=== PATIENT | female | born 1950 | race Caucasian/White ===

== ENCOUNTER → 2017-01-01 | Outpatient (CLI) | payer MEDICARE ==
[~2017-01-01] MED LIST: ASCO1CHW17 PO; ASPI81TA28 PO; CHOL20005 PO; CYAN100T6 PO; ESTR1CRE PV; FLAX10007 PO; METO50TA16 PO; MULT-884 PO; OMEG5CAP PO; PRLSR20 PO
[2017-01-01 10:40] LABS: ALT/SGPT 28 U/L (12-78); BLOOD UREA NITROGEN 11 mg/dl (7-18); BUN/CREATININE RATIO 16.1 (10-20); CALCIUM 8.8 mg/dl (8.5-10.1); CARBON DIOXIDE 28 mmol/L (21-32); CHLORIDE 105 mmol/L (98-107); CHOLESTEROL 281 mg/dl (0-200); CREATININE 0.67 mg/dl (0.60-1.20); GLUCOSE 82 mg/dl (70-99); POTASSIUM 4.2 mmol/L (3.5-5.1); SODIUM 142 mmol/L (136-145)
[2017-01-01 10:43] LABS: ALB/GLOB RATIO 0.9 (0.9-2); ALKALINE PHOSPHATASE 95 U/L (45-117); AST/SGOT 21 U/L (15-37); CHOLESTEROL/HDL RATIO 4.8; HDL CHOLESTEROL 58 mg/dl; LDL CHOLESTEROL CALCULATED 181 mg/dl; TRIGLYCERIDES 209 mg/dl (0-150); VERY LOW DENSITY LIPOPROT CALC 42 mg/dl
== END | disposition home or self-care (01) ==
LOC: C.LAB 09:32
PROVIDERS: ATTEND Nurse Practitioner
DX: E78.5 Hyperlipidemia, unspecified (principal)

== ENCOUNTER → 2017-07-20 | Outpatient (CLI) | payer MEDICARE ==
[2017-07-20 13:14] LABS: ALT/SGPT 29 U/L (12-78); AST/SGOT 22 U/L (15-37); BLOOD UREA NITROGEN 14 mg/dl (7-18); BUN/CREATININE RATIO 19.3 (10-20); CALCIUM 9.3 mg/dl (8.5-10.1); CARBON DIOXIDE 29 mmol/L (21-32); CHLORIDE 106 mmol/L (98-107); CHOLESTEROL 267 mg/dl (0-200); GLUCOSE 79 mg/dl (70-99); POTASSIUM 3.9 mmol/L (3.5-5.1); SODIUM 140 mmol/L (136-145)
[2017-07-20 13:17] LABS: ALKALINE PHOSPHATASE 103 U/L (45-117); CHOLESTEROL/HDL RATIO 5.2; HDL CHOLESTEROL 51 mg/dl; LDL CHOLESTEROL CALCULATED 158 mg/dl; TRIGLYCERIDES 290 mg/dl (0-150); VERY LOW DENSITY LIPOPROT CALC 58 mg/dl
== END | disposition home or self-care (01) ==
LOC: C.LAB 09:13
PROVIDERS: ATTEND Nurse Practitioner
DX: Z11.59 Encounter for screening for other viral diseases (principal); E78.5 Hyperlipidemia, unspecified

== ENCOUNTER → 2017-08-16 | Outpatient (CLI) | payer MEDICARE ==
--- NOTE | 2017-08-16 12:36 | MAMMOGRAPHY REPORT ---
BILATERAL DIGITAL SCREENING MAMMOGRAM WITH CAD: 08/16/2017 CLINICAL HISTORY: Routine screening. Patient has no complaints. TECHNIQUE: Bilateral CC and MLO views were obtained. Current study was also evaluated with a Compute r Aided Detection (CAD) system. COMPARISON: Comparison is made to exams dated: 08/13/2016 mammogram, 08/12/2015 mammogram, 08/09/2014 [facility], 02/08/2013 mammogram, 05/27/2011 mammogram, and 05/19/2011 mammo [facility]. BREAST COMPOSITION: The tissue of both breasts is almost entirely fatty. FINDINGS: There are benign rim calcifications in both breasts. No suspicious mass, architectural di stortion or cluster of suspicious microcalcifications is seen. IMPRESSION: ACR BI-RADS CATEGORY 2: BENIGN There is no mammographic evidence of malignancy. A 1 year screening mammogram is recommended. The pa tient will receive written notification of the results. Approximately 10% of breast cancers are not detected with mammography. A negative mammographic report should not delay biopsy if a clinically suggestive mass is present. Elvia Robledo M.D. ay/:08/16/2017 12:12:53 Auto Body Detailer: Tess ANDERSON(Livia)(Hans)(BD), [facility] letter sent: Normal 1/2 BI-RADS Code: ACR BI-RADS Category 2: Benign
== END | disposition home or self-care (01) ==
LOC: C.MAMM 10:49
PROVIDERS: ATTEND Nurse Practitioner
DX: Z12.31 Encounter for screening mammogram for malignant neoplasm of breast (principal)

== ENCOUNTER → 2018-01-28 | Outpatient (CLI) | payer MEDICARE ==
[2018-01-28 12:38] LABS: BLOOD UREA NITROGEN 11 mg/dl (7-18); CARBON DIOXIDE 25 mmol/L (21-32); CREATININE 0.66 mg/dl (0.60-1.20); GLUCOSE 82 mg/dl (70-99); POTASSIUM 4.2 mmol/L (3.5-5.1); SODIUM 137 mmol/L (136-145)
[2018-01-28 12:49] LABS: CHOLESTEROL 274 mg/dl (0-200); LDL CHOLESTEROL CALCULATED 175 mg/dl
== END | disposition home or self-care (01) ==
LOC: C.LAB 10:24
PROVIDERS: ATTEND Nurse Practitioner
DX: E78.5 Hyperlipidemia, unspecified (principal); M85.80 Other specified disorders of bone density and structure, unspecified site; L67.9 Hair color and hair shaft abnormality, unspecified

== ENCOUNTER → 2018-02-15 | Outpatient (CLI) | payer MEDICARE | END | disposition home or self-care (01) | LOC: C.MAMM 08:47 | PROVIDERS: ATTEND Nurse Practitioner | DX: M85.859 Other specified disorders of bone density and structure, unspecified thigh (principal); N95.9 Unspecified menopausal and perimenopausal disorder ==

== ENCOUNTER 2018-06-20 05:41 | Day surgery (SDC) | payer MEDICARE ==
[2018-06-17 09:27] VITALS: Ht 152.4 cm; Wt 71.4 kg
[~2018-06-20] VITALS: Ht 152.4 cm; Wt 71.4 kg
[~2018-06-20 05:41] MED LIST changes: -ESTR1CRE PV; +ONDA4TAB46 PO; -PRLSR20 PO; +TAGAMET PO; +TRAM-10 PO
[2018-06-20] MEDS ORDERED: CEFAZOLIN 2000MG IV PUSH 15 ML IV SCH (06:00)
[2018-06-20] MEDS ORDERED: LACTATED RINGER'S 1000ML 1,000 ML IV SCH ×3 (06:00→09:23)
[2018-06-20 06:21] VITALS: BP 147/84; PULSE 62; TEMP 37.3; O2SAT 97
[2018-06-20] MEDS ORDERED: PROPOFOL IV EMULSION 10 MG/ML 20 ML VIAL ONE (08:00)
[2018-06-20] MEDS ORDERED: ONDANSETRON INJ 2 MG/ML 2 ML VIAL ONE (08:00)
[2018-06-20] MEDS ORDERED: LIDOCAINE HCL 2% 2 ML VIAL (20MG/ML) ONE (08:00)
[2018-06-20] MEDS ORDERED: FENTANYL CITRATE INJ 50 MCG/1 ML 2 ML VIAL ONE (08:00)
[2018-06-20] MEDS ORDERED: FLUMAZENIL 0.1 MG/1 ML 10 ML VIAL IV PRN (08:15)
[2018-06-20] MEDS ORDERED: FENTANYL CITRATE INJ 50 MCG/1 ML 2 ML VIAL IV PRN (08:15)
[2018-06-20] MEDS ORDERED: MEPERIDINE HCL 25 MG/ML CARP IV PRN (08:15)
[2018-06-20] MEDS ORDERED: ATROPINE SULFATE 0.1 MG/ML 5ML SYR IV PRN (08:15)
[2018-06-20] MEDS ORDERED: LABETALOL HCL IV 5 MG/ML 20ML IV PRN (08:15)
[2018-06-20] MEDS ORDERED: ONDANSETRON INJ 2 MG/ML 2 ML VIAL IV PRN ×2 (08:15→09:30)
[2018-06-20] MEDS ORDERED: NALOXONE HCL 0.4 MG/1 ML VIAL/CARP IV PRN (08:15)
[2018-06-20] MEDS ORDERED: EpHEDrine SULFATE INJ 50 MG/ML AMP IV PRN (08:15)
[2018-06-20] MEDS ORDERED: PHENYLEPHRINE 100MCG/ML 5ML SYR IV PRN (08:15)
--- NOTE | 2018-06-20 08:18 | History & Physical Bridge Note ---
H&P Re-Evaluation Bridge Note: I have examined the patient, reviewed the History & Physical and in the interval since the performance of the History & Physical I have noted the following changes of clinical significance: No changes noted
[2018-06-20] MEDS ORDERED: HEPARIN SOD (PORCINE) 1000 UNIT/ML 10 ML VIAL ONE (08:21)
[2018-06-20] MEDS ORDERED: CEFAZOLIN SOD 1 GM VIAL ONE (08:21)
[2018-06-20] MEDS ORDERED: LIDOCAINE HCL 1% 20 ML VIAL ONE (08:21)
--- NOTE | 2018-06-20 09:21 | Discharge Instructions ---
Discharge Instructions Date of Service Jun 20, 2018. Visit Reason for Visit: B-Cell Lymphoma Discharge Discharge Diagnosis / Problem: A-port Discharge Goals Goal(s): Therapeutic intervention Activity Recommendations Activity Limitations: as noted below Shower/Bathe: keep incision dry (for 2 days) Driving or Machine Use: resume 1 day after discharge Anesthesia . Post Anesthesia Instructions: If you have had General Anesthesia or IV Sedation: * Do not drive today. * Resume driving when surgeon permits. * Do not make important decisions or sign legal documents today. * Call surgeon for: 1. Temperature elevations greater than 101 degrees F. 2. Uncontrollable pain. 3. Excessive bleeding. 4. Persistent nausea and vomiting. 5. Medication intolerance (nausea, vomiting or rash). * For nausea and vomiting use only clear liquids such as: tea, soda, bouillon until nausea subsides, then gradually increase diet as tolerated. * If you have any concerns or questions, call your surgeon's office. If physician is unavailable and it is an emergency, call 911 or go to the nearest emergency room. . Instructions / Follow-Up Instructions / Follow-Up Dr. Cardenas's office in 2 weeks for suture removal It is OK for port to be used Diet Recommendations Recommended Home Diet: no limitations Procedures Procedures Performed: Insertion of A-Port Left Subclavian Pending Studies Studies pending at discharge: no Medical Emergencies . Who to Call and When: Medical Emergencies: If at any time you feel your situation is an emergency, please call 911 immediately. . Non-Emergent Contact Non-Emergency issues call your: Surgeon Call Non-Emergent contact if: you have a fever, temperature is above 101.5, your pain is not controlled, wound has increased redness, wound has increased pain . . "Provider Documentation" section prepared by Ramon Pierce. .
--- NOTE | 2018-06-20 09:24 | [facility] Operative Report ---
Operative Report Operative Date Jun 20, 2018. Pre-Operative Diagnosis Need for chemotherapy Post-Operative Diagnosis Same as preop Procedure(s) Performed Insertion of A-Port Left Subclavian Surgeon Dr Cardenas Lens Inserter Surgeon(s) None Estimated Blood Loss 5 ml Specimens None Anesthesia Type MAC Complication(s) none Disposition Recovery Room / PACU I attest to the content of the Intraoperative Record and any orders documented therein. Any exceptions are noted below.
[2018-06-20] MEDS ORDERED: ACETAMINOPHEN 325 MG TAB PO PRN (09:30)
[2018-06-20] MEDS ORDERED: TRAMADOL HCL 50 MG TAB PO PRN ×2 (09:30)
[2018-06-20] MEDS ORDERED: IBUPROFEN 600 MG TAB PO PRN (09:30)
[2018-06-20 09:32] VITALS: BP 125/71; PULSE 69; TEMP 36.6; O2SAT 96
--- NOTE | 2018-06-20 09:47 | Anesthesiology Progress Note ---
Anesthesia Post Op Note Date & Time Jun 20, 2018 at 09:47 Vital Signs Pain Intensity: 2 Vital Signs Past 12 Hours Date Time Temp Pulse Resp B/P (MAP) Pulse Ox O2 Delivery O2 Flow Rate FiO2 06/20/18 06:21 37.3 62 18 147/84 (105) 97 Room Air Notes Mental Status: alert / awake / arousable, participated in evaluation Pt Amnestic to Procedure: Yes Nausea / Vomiting: adequately controlled Pain: adequately controlled Airway Patency, RR, SpO2: stable & adequate BP & HR: stable & adequate Hydration State: stable & adequate Anesthetic Complications: no major complications apparent The patient is awake and her vitals are stable in recovery.
--- NOTE | 2018-06-20 09:49 | OPERATIVE REPORT ---
DATE OF OPERATION: 06/20/2018 NAME OF OPERATION: Port placement with fluoroscopy. PREOPERATIVE DIAGNOSIS: Lymphoma. POSTOPERATIVE DIAGNOSIS: Same. STAFF SURGEON: Bonifacio Cardenas MD ANESTHESIA: 1% plain lidocaine with sedation. DESCRIPTION OF PROCEDURE: Patient was brought in the operating room and placed on the operating table in supine position. Her chest was prepped and draped in the usual fashion. Skin and subcutaneous tissue over the left deltopectoral groove were anesthetized. Incision made carrying dissection down identifying a very small cephalic vein which I was unable to use. It was ligated and then placing the patient in Trendelenburg position, I was able to puncture the left subclavian vein and pass a wire under fluoroscopy. The needle was removed. A dilator introducer passed over the wire, the wire and dilator removed, and then the catheter passed through the introducer positioned in the superior vena cava under fluoroscopy and then the introducer removed. A pocket was fashioned in the subcutaneous tissue. The port was attached to the catheter, placed into the pocket. It was aspirated and flushed with heparinized solution. It was secured using 3-0 Prolene suture. The deep tissue was reapproximated using 2-0 chromic suture and the skin reapproximated using 4-0 nylon suture. Dressing applied and patient transferred to recovery room in stable condition. I attest to the content of the Intraoperative Record and any orders documented therein. Any exception s are noted below.
--- NOTE | 2018-06-20 09:51 | OPERATIVE REPORT ---
DATE OF OPERATION: 06/20/2018 NAME OF PROCEDURE: Fluoroscopy for port placement. DESCRIPTION OF PROCEDURE: Patient was in the operating room undergoing port placement. I was able to use fluoroscopy to place the catheter. The patient tolerated well. I attest to the content of the Intraoperative Record and any orders documented therein. Any exception s are noted below.
[2018-06-20 10:00] VITALS: BP 126/79; PULSE 65; TEMP 37.2; O2SAT 94
--- NOTE | 2018-06-20 10:37 | DIAGNOSTIC IMAGING REPORT ---
CHEST ONE VIEW PORTABLE HISTORY: port placement COMPARISON: Chest 05/23/2018. FINDINGS: The lungs are clear. The heart is top normal in size. No pleural effusions. No pneumothorax. Left subclavian Port-A-Cath terminates at the distal SVC. IMPRESSION: 1. Left subclavian Port-A-Cath terminates at the distal SVC. 2. No pneumothorax. Electronically signed by: Davidson De La Torre M.D. 06/20/2018 10:36 AM Dictated Date/Time: 06/20/2018 10:33 AM
== END 2018-06-20 10:45 | disposition home or self-care (01) ==
LOC: C.ACU 05:41
PROVIDERS: ATTEND Surgery
DX: C83.30 Diffuse large B-cell lymphoma, unspecified site (principal); I10 Essential (primary) hypertension; K21.9 Gastro-esophageal reflux disease without esophagitis; E78.5 Hyperlipidemia, unspecified; M19.90 Unspecified osteoarthritis, unspecified site; E66.01 Morbid (severe) obesity due to excess calories; Z68.30 Body mass index [BMI] 30.0-30.9, adult; Z88.5 Allergy status to narcotic agent; Z87.440 Personal history of urinary (tract) infections; Z87.442 Personal history of urinary calculi; Z79.82 Long term (current) use of aspirin

== ENCOUNTER → 2018-06-23 | Outpatient (CLI) | payer MEDICARE ==
[~2018-06-23] MED LIST changes: -ASPI81TA28 PO
--- NOTE | 2018-06-24 19:02 | ECHOCARDIOGRAM REPORT ---
*NOTICE TO RECEIVING LIBERTARIAN AGENCY This information is strictly Confidential and protected under [place] law. [place] law prohibits you from making any further disclosure of this information unless further disclosure is expressly permitted by the written consent of the person to whom it pertains or is authorized by law. A general authorization for the release of medical or other information is not sufficient for this purpose. Hospital accepts no responsibility if the information is made available to any other person, INCLUDING THE PATIENT. Interpretation Summary * Name: OLI ROGER Study Date: 06/23/2018 01:47 PM * Patient Location: [facility] HR: 78 * : 1950 (M/d/yyyy) Gender: Female Height: 60 in * Age: 68 yrs Ethnicity: [place] Weight: 155 lb * Ordering Physician: Kwaku Ramos * Referring Physician: Kwaku Ramos. * Performed By: Daya Julian RDCS * * Reason For Study: LYMPHOMA * BSA: 1.7 m2 * -- Conclusions -- * 1. Normal left ventricular size with hyperdynamic systolic function. EF > 70%. No regional wall motion abnormalities. Mild asymmetric hypertrophy of the basal anteroseptum. Type 1 diastolic dysfunction. * 2. No significant valvular abnormalities visualized. * 3. Normal estimated right ventricular systolic pressure. * 4. No prior study available for comparison. Procedure Details * A complete two-dimensional transthoracic echocardiogram was performed (2D, M-mode, Doppler and color flow Doppler). Left Ventricle * Normal left ventricular size with hyperdynamic systolic function. EF > 70%. No regional wall motion abnormalities. Asymmetric mild hypertrophy of the basal anteroseptum. Type 1 diastolic dysfunction. Right Ventricle * The right ventricle is normal in size and function. Atria * The left atrial size is normal. * Right atrial size is normal. * There is no evidence of atrial septal defect, but resolution does not allow assessment for a patent foramen ovale. Mitral Valve * The mitral valve is grossly normal. * There is no mitral valve stenosis. * There is trace mitral regurgitation. Tricuspid Valve * The tricuspid valve is not well visualized, but is grossly normal. * There is no tricuspid stenosis. * There is trace tricuspid regurgitation. Aortic Valve * The aortic valve is trileaflet. * No hemodynamically significant valvular aortic stenosis. * No aortic regurgitation is present. Pulmonic Valve * The pulmonary valve is inadequately visualized, but the Doppler data is adequate for interpretation. * There is no pulmonic valvular stenosis. * There is no significant pulmonary regurgitation. Great Vessels * The aortic root is normal size. * Aortic arch of normal dimension. Pericardium/Pleural * There is no pericardial effusion. Great Vessels * Normal inferior vena cava size and collapsability with sniff indicates a normal right atrial pressure of 3 mmHg MMode 2D Measurements and Calculations IVSd 1.3 cm IVSs 1.7 cm LVIDd 3.9 cm LVIDs 2.2 cm LVPWd 0.83 cm LVPWs 1.7 cm IVS/LVPW 1.6 FS 44.4 % EDV(Teich) 67.7 ml ESV(Teich) 16.1 ml EF(Teich) 76.3 % EDV(cubed) 61.4 ml ESV(cubed) 10.5 ml EF(cubed) 82.8 % % IVS thick 24.9 % % LVPW thick 103.0 % LV mass(C)d 138.5 grams LV mass(C)dI 82.7 grams/m\S\2 LV mass(C)s 132.9 grams LV mass(C)sI 79.3 grams/m\S\2 SV(Teich) 51.7 ml SI(Teich) 30.8 ml/m\S\2 SV(cubed) 50.8 ml SI(cubed) 30.4 ml/m\S\2 Ao root diam 2.9 cm Ao root area 6.6 cm\S\2 ACS 1.3 cm LA dimension 3.2 cm asc Aorta Diam 2.5 cm LA/Ao 1.1 LVOT diam 1.9 cm LVOT area 2.8 cm\S\2 LVAd ap4 23.0 cm\S\2 LVLd ap4 7.5 cm EDV(MOD-sp4) 57.1 ml EDV(sp4-el) 60.1 ml LVAs ap4 10.2 cm\S\2 LVLs ap4 5.6 cm ESV(MOD-sp4) 15.3 ml ESV(sp4-el) 15.7 ml EF(MOD-sp4) 73.1 % EF(sp4-el) 73.9 % LVAd ap2 25.9 cm\S\2 LVLd ap2 8.3 cm EDV(MOD-sp2) 66.5 ml EDV(sp2-el) 68.7 ml LVAs ap2 11.8 cm\S\2 LVLs ap2 6.6 cm ESV(MOD-sp2) 16.7 ml ESV(sp2-el) 17.8 ml EF(MOD-sp2) 74.9 % EF(sp2-el) 74.1 % LVLd %diff 9.4 % EDV(MOD-bp) 64.1 ml LVLs %diff 15.3 % ESV(MOD-bp) 16.8 ml EF(MOD-bp) 73.8 % SV(MOD-sp4) 41.8 ml SI(MOD-sp4) 24.9 ml/m\S\2 SV(MOD-sp2) 49.8 ml SI(MOD-sp2) 29.7 ml/m\S\2 SV(MOD-bp) 47.3 ml SI(MOD-bp) 28.2 ml/m\S\2 SV(sp4-el) 44.4 ml SI(sp4-el) 26.5 ml/m\S\2 SV(sp2-el) 50.9 ml SI(sp2-el) 30.4 ml/m\S\2 Doppler Measurements and Calculations MV E max nicholas 77.7 cm/sec MV A max nicholas 85.7 cm/sec MV E/A 0.91 MV dec time 0.22 sec Ao V2 max 128.6 cm/sec Ao max PG 6.6 mmHg Ao max PG (full) 2.8 mmHg ELIZABETH(V,A) 2.1 cm\S\2 ELIZABETH(V,D) 2.1 cm\S\2 LV V1 max PG 3.8 mmHg LV V1 max 97.0 cm/sec PA V2 max 96.5 cm/sec PA max PG 3.7 mmHg TR max nicholas 242.9 cm/sec RVSP(TR) 27.0 mmHg RAP systole 3.0 mmHg
== END | disposition home or self-care (01) ==
LOC: C.CPL 13:46
PROVIDERS: ATTEND Internal Medicine Hematology & Oncology
DX: C83.33 Diffuse large B-cell lymphoma, intra-abdominal lymph nodes (principal)

== ENCOUNTER 2023-06-14 20:26 | Observation (INO) ==
[2023-06-14 20:57] LABS: Basophils # (auto) 0.05 K/uL (0-0.2); Basophils % (auto) 0.5 %; Eosinophils # (auto) 0.12 K/uL (0-0.50); Eosinophils % (auto) 1.2 %; Hematocrit (blood only) 33.8 % (37.0-47.0); Hemoglobin 11.5 g/dl (12.0-16.0); Immature Granulocytes # (auto) 0.04 K/uL (0.01-0.20); Immature Granulocytes % (auto) 0.4 %; Lymphocytes # (auto) 1.46 K/uL (1.2-3.4); Lymphocytes % (auto) 14.9 %; Mean Corpuscular Volume 85.1 fL (80.0-100.0); Mean Platelet Volume 10.7 fL (9.4-12.4); Monocytes # (auto) 1.07 K/uL (0.11-0.59); Monocytes % (auto) 10.9 %; Neutrophils # (auto) 7.06 K/uL (1.40-6.50); Neutrophils % (auto) 72.1 %; Platelet Count 228 K/uL (130-400); RDW Coefficient of Variation 13.6 % (11.5-14.5); RDW Standard Deviation 42.7 fL (36.4-46.3); Red Blood Count 3.97 M/uL (4.20-5.40)
[2023-06-14 21:15] LABS: Alanine Aminotransferase 25 U/L (7-52); Albumin Globulin Ratio 1.6 (0.9-2); Albumin Level 4.2 gm/dl (3.4-5.0); Alkaline Phosphatase 79 U/L (34-104); Anion Gap 10 (3-11); Aspartate Aminotransferase 31 U/L (13-39); BUN Creatinine Ratio 12.5 (10-20); Bilirubin,Total 0.7 mg/dl (0.2-1.0); Blood Urea Nitrogen 8 mg/dl (6-23); Calcium 9.2 mg/dl (8.6-10.3); Carbon Dioxide 25 mmol/L (21-32); Chloride 104 mmol/L (98-107); Est GFR (African American) 102.6 ml/min; Est GFR (Non-African American) 88.5 ml/min; Globulin 2.7 gm/dl (2.5-4.0); Glucose 100 mg/dl (70-99(Fasting)); Lipase 11 U/L (11-82); Potassium 3.3 mmol/L (3.5-5.1); Sodium 139 mmol/L (136-145); Total Protein 6.9 gm/dl (6.0-8.3)
[2023-06-14] MEDS ORDERED: ACETAMINOPHEN 1,000 MG/100 ML VIAL IV STA (21:35)
[2023-06-14] MEDS ORDERED: ONDANSETRON INJ 2 MG/ML 2 ML VIAL IV STA (21:35)
[2023-06-14] MEDS ORDERED: SODIUM CHLORIDE 0.9% 1000ML 500 ML IV ONE (21:35)
[2023-06-14] MEDS ORDERED: PIPERACILLIN/TAZOBACTAM 4.5 GM/120 ML BAG IV ONE (21:38)
[2023-06-14] MEDS ORDERED: POTASSIUM CHLORIDE 10 MEQ TABCR PO STA (21:39)
[2023-06-14] MEDS ORDERED: HYDROmorphone INJ 0.5 MG/0.5 ML SYR IV STA ×2 (21:47→23:31)
[2023-06-14 21:58] LABS: Magnesium 1.9 mg/dl (1.7-2.4)
[2023-06-14 22:11] LABS: Appearance Urine Clear (Clear); Bilirubin Urine Negative (Negative); Blood Urine 3+ (Negative); Color Urine Dark Yellow; Glucose Urine UA Negative (Negative); Ketones Urine Negative (Negative); Leukocyte Esterase Urine 2+ (Negative); Nitrite Urine Positive (Negative); Protein Urine Trace (Negative); RBC Urine Automated >30 /hpf (0-4); Specific Gravity Urine 1.007 (1.000-1.030); Urobilinogen Urine Negative (Negative)
[2023-06-14 22:24] LABS: Bacteria Urine Automated 1+ (Negative)
[2023-06-14] MEDS ORDERED: OPTIRAY 320 100ml IV ONE (22:53)
--- NOTE | 2023-06-14 23:21 | CT Scan Report ---
Exam(s): CT ABDOMEN + PELVIS With Contrast IV Amt: 92ml OPTIRAY 320 EXAM: CT Abdomen and Pelvis With Intravenous Contrast CLINICAL HISTORY: Reason for exam: abd pain, bladder lift OR 3 days ago. TECHNIQUE: Axial computed tomography images of the abdomen and pelvis with intravenous contrast. CTDI is 19.11 mGy and DLP is 913.47 mGy-cm. Automated exposure control was utilized for the study. A dose lowering technique was utilized adhering to the principles of ALARA. CONTRAST: Patient received 92ml OPTIRAY 320 of IV contrast COMPARISON: CT abdomen and pelvis 08/06/20 FINDINGS: Lung bases are clear. There are a few benign liver cysts. Liver is otherwise unremarkable. Gallbladder, spleen, pancreas, and adrenal glands appear within normal limits. Kidneys are similar in size, contour, and enhancement. There is no hydronephrosis. There is atherosclerosis of the abdominal aorta without aneurysm. There is no adenopathy. There is no free air or significant free fluid. There is a fat-containing supraumbilical ventral hernia, stable from prior exam. Appendix is normal. There is no bowel obstruction or inflammatory change. There are sigmoid diverticula without diverticulitis. Uterus is surgically absent. There is a small focus of gas within the bladder lumen suggesting recent instrumentation. There is thickening of the posterior bladder wall which may be on the basis of postoperative change. Mild stranding surrounds the bladder. There are foci of subcutaneous gas in the perineum. There are no acute osseous findings. There is facet degeneration within the lumbar spine producing grade 1 anterolisthesis of L4. IMPRESSION: 1. Thickened appearance of the posterior bladder wall, possibly on the basis of postoperative change. A small volume of hemorrhagic fluid within the bladder lumen is not excluded. 2. Stranding around the urinary bladder may be on a postoperative basis or may reflect cystitis. Correlate with urinalysis. Small focus of gas and urinary bladder suggesting recent instrumentation. Electronically signed by: Lorna Adrian M.D. 06/14/23 23:20 PM
[2023-06-14] MEDS ORDERED: PHENAZOPYRIDINE HCL 200 MG TAB PO STA (23:30)
[2023-06-15] MEDS ORDERED: amLODIPine BESYLATE 5 MG TAB PO ONE (00:01)
[2023-06-15] MEDS ORDERED: NSS + 20MEQ KCL 20 MEQ/1,000 ML BAG IV ONE (00:03)
--- NOTE | 2023-06-15 01:22 | Emergency Department Note ---
History of Present Illness General Chief complaint: Abdominal Pain Stated complaint: ABDOMINAL PAIN Time Seen by Provider: 06/14/23 21:24 History of Present Illness Maximum Pain Intensity: 3 This 73-year-old female that had a bladder sling surgery done on Wednesday at [facility] presents to the ER complaining of abdominal pain, spasms and nausea today after they pulled out the Enciso. Patient denies chest pain, dyspnea, fevers, flank pain, diarrhea. Home Medications Medication Instructions Recorded Confirmed Type cyanocobalamin (vitamin B-12) 500 500 mcg PO QAM 07/14/19 06/14/23 History mcg tablet ascorbic acid (vitamin C) 250 mg 250 mg PO QAM 07/23/20 06/14/23 History tablet cholecalciferol (vitamin D3) 50 2,000 unit PO QPM 09/16/20 06/14/23 History mcg (2,000 unit) capsule Lactobacillus acidophilus 1.5 mg 1,000 mmu cells PO DAILY 11/27/21 06/14/23 History (250 million cell) capsule (Probiotic Acidophilus) calcium carbonate 500 mg calcium 500 mg PO DAILY 11/27/21 06/14/23 History (1,250 mg) tablet ibuprofen 200 mg tablet (Advil) 600 mg PO Q6H PRN Pain 01/06/22 06/14/23 History hydromorphone 2 mg tablet 2 mg PO UD 06/14/23 06/14/23 History ibuprofen 600 mg tablet 600 mg PO UD 06/14/23 06/14/23 History omega-3 fatty acids 1,000 mg 1,000 mg PO HS 06/14/23 06/14/23 History capsule pantoprazole 40 mg tablet,delayed 40 mg PO DAILYBB 06/14/23 06/14/23 History release Allergies Allergy/AdvReac Type Severity Reaction Status Date / Time lisinopril Allergy Intermediate fatigue Verified 07/27/22 11:23 solifenacin Allergy Intermediate visual Verified 07/27/22 11:23 disturbance cefuroxime [From Ceftin] Allergy Mild Nausea Verified 07/27/22 11:23 codeine Allergy Mild GI UPSET Verified 07/27/22 11:23 morphine Allergy Mild GI SYMPTOMS Verified 07/27/22 11:23 phenobarbital Allergy Unknown UNKNOWN Verified 07/27/22 11:23 REACTION [id number] Reductase AdvReac Intermediate AFFECTED Verified 07/27/22 11:23 Inhibitor LIVER, [[id number] Reductase fatigue, Inhibitor] nausea valsartan AdvReac Intermediate abdominal Verified 07/27/22 11:23 pain omeprazole AdvReac Mild nausea Verified 07/27/22 11:23 prednisone AdvReac Unknown UNKNOWN Verified 07/27/22 11:23 REACTION Past Med/Surg History Medical History Adnexal mass 2018 Barretts esophagus EGD- 2019- WNL - no [place] Bradycardia Chronic diarrhea Depression Diverticulosis Fatty liver Hepatic cyst Hiatal hernia History of anesthesia reaction in 1970 pt states she received "a shot to help her relax" prior to scheduled T&A sx and pt states she became "very flushed, face got brick red, got so anxious, my heart was racing and I felt like the montanez were closing in"--pt states she refused sx at that time ~Pt has had surgery since then and never had futher issues History of chemotherapy R-EPOCH- 6 cycles 2018 History of gastric ulcer History of Helicobacter pylori infection History of kidney stones 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 BSO Hx of radiation therapy 36 Gy-18 fractions-last tx 02/13/2019 Left lower quadrant abdominal pain intermittent PET scan in August with Oncology Nephrolithiasis 2011 (11/22/13 PCP note) Non-Hodgkin's lymphoma in adult Stage II Diffuse large B-Cell, non-hodgkin's lymphoma-05/25/2018 On statin therapy Osteopenia Dexa scan 2018 Pelvic prolapse Port-A-Cath in place left chest Spinal stenosis Stomach pain reason for EGD Tooth infection Transient global amnesia Urinary Incontinence Urinary incontinence Vitamin deficiency 04/2019-36.5 Surgical History H/O tubal ligation History of esophagogastroduodenoscopy (EGD) History of gynecologic surgery benign tumor removed in vagina History of total abdominal hysterectomy and bilateral salpingo-oophorectomy 11/2018 History of wisdom tooth extraction Hx of colonoscopy S/P breast biopsy open biopsy- fibroadenoma 1996 S/P myomectomy Family History Father Cardiac disorder Kidney stones Myocardial infarction Lung cancer Hypertension Mother Lung cancer Brother Diabetes Family history of malignant neoplasm of skin Stroke Sister Family history of reaction to anesthesia nausea/vomiting Daughter Family history of reaction to anesthesia nausea/vomiting Family hx colonic polyps Other Asthma Denies family history of Breast cancer Colorectal cancer Social History Smoking Status: Never smoker Second Hand Exposure: Yes (parents smoked); Do You Dip or Chew Tobacco: No; Hx Alcohol Use: No Hx Substance Use: No Preferred Language: Bengali Communication Ability: Effective Installation Technician Required: No Beliefs That Will Affect Care: None marital status: Current Living Situation: Spouse current occupational status: retired Feels Safe at Home: Yes caffeine: Yes Seatbelt Use: always Assistive Devices: Glasses Review of Systems A total of 10 systems reviewed and were otherwise negative Physical Exam Vital Signs Vital Signs - 24 hr 06/14/23 20:31 06/14/23 21:20 06/14/23 21:42 Temperature 36.4 C L Temperature Source Temporal Artery Scan Pulse Rate 71 70 Pulse Rate [Apical] 64 Pulse Rate from SpO2 Sensor Respiratory Rate 18 17 Respiratory Depth Normal Blood Pressure 181/77 H Blood Pressure Mean 111 Pulse Oximetry 96 95 Oxygen Delivery Method Room Air Sepsis Recent Fever Within 48 Hours No Sepsis New/Unexplained Change in Mental Status N/A Sepsis Action Taken by Nursing No Action Required 06/14/23 21:43 06/14/23 21:50 06/14/23 22:00 Temperature Temperature Source Pulse Rate 67 65 68 Pulse Rate [Apical] Pulse Rate from SpO2 Sensor 66 64 68 Respiratory Rate 23 17 20 Respiratory Depth Blood Pressure Blood Pressure Mean Pulse Oximetry 97 97 95 Oxygen Delivery Method Sepsis Recent Fever Within 48 Hours Sepsis New/Unexplained Change in Mental Status Sepsis Action Taken by Nursing 06/14/23 22:10 06/14/23 22:20 06/14/23 22:30 Temperature Temperature Source Pulse Rate 71 66 62 Pulse Rate [Apical] Pulse Rate from SpO2 Sensor 71 67 63 Respiratory Rate 12 19 12 Respiratory Depth Blood Pressure Blood Pressure Mean Pulse Oximetry 94 96 93 Oxygen Delivery Method Sepsis Recent Fever Within 48 Hours Sepsis New/Unexplained Change in Mental Status Sepsis Action Taken by Nursing 06/14/23 22:40 06/14/23 23:00 06/14/23 23:10 Temperature Temperature Source Pulse Rate 76 77 67 Pulse Rate [Apical] Pulse Rate from SpO2 Sensor 76 76 67 Respiratory Rate 18 17 15 Respiratory Depth Blood Pressure Blood Pressure Mean Pulse Oximetry 93 96 Oxygen Delivery Method Sepsis Recent Fever Within 48 Hours Sepsis New/Unexplained Change in Mental Status Sepsis Action Taken by Nursing 06/14/23 23:20 06/14/23 23:30 06/14/23 23:40 Temperature Temperature Source Pulse Rate 66 68 66 Pulse Rate [Apical] Pulse Rate from SpO2 Sensor 67 69 67 Respiratory Rate 20 15 22 Respiratory Depth Blood Pressure Blood Pressure Mean Pulse Oximetry 93 99 95 Oxygen Delivery Method Sepsis Recent Fever Within 48 Hours Sepsis New/Unexplained Change in Mental Status Sepsis Action Taken by Nursing 06/14/23 23:50 06/15/23 00:00 06/15/23 00:03 Temperature Temperature Source Pulse Rate 65 72 68 Pulse Rate [Apical] Pulse Rate from SpO2 Sensor 64 73 69 Respiratory Rate 12 20 15 Respiratory Depth Blood Pressure Blood Pressure Mean Pulse Oximetry 94 95 94 Oxygen Delivery Method Sepsis Recent Fever Within 48 Hours Sepsis New/Unexplained Change in Mental Status Sepsis Action Taken by Nursing 06/15/23 00:03 06/15/23 00:10 06/15/23 00:20 Temperature Temperature Source Pulse Rate 71 68 Pulse Rate [Apical] Pulse Rate from SpO2 Sensor 71 66 Respiratory Rate 16 15 Respiratory Depth Blood Pressure 126/76 Blood Pressure Mean 103 Pulse Oximetry 92 95 Oxygen Delivery Method Sepsis Recent Fever Within 48 Hours Sepsis New/Unexplained Change in Mental Status Sepsis Action Taken by Nursing 06/15/23 00:30 06/15/23 00:40 06/15/23 00:50 Temperature Temperature Source Pulse Rate 73 72 69 Pulse Rate [Apical] Pulse Rate from SpO2 Sensor 69 73 68 Respiratory Rate 12 26 H 16 Respiratory Depth Blood Pressure Blood Pressure Mean Pulse Oximetry 93 97 91 Oxygen Delivery Method Sepsis Recent Fever Within 48 Hours Sepsis New/Unexplained Change in Mental Status Sepsis Action Taken by Nursing 06/15/23 01:00 06/15/23 01:00 Temperature Temperature Source Pulse Rate 66 Pulse Rate [Apical] Pulse Rate from SpO2 Sensor 66 Respiratory Rate 17 Respiratory Depth Blood Pressure 109/53 L Blood Pressure Mean 84 Pulse Oximetry 96 Oxygen Delivery Method Sepsis Recent Fever Within 48 Hours Sepsis New/Unexplained Change in Mental Status Sepsis Action Taken by Nursing VITALS: Vitals are noted on the nurse's note and reviewed by myself. Vital signs stable. GENERAL: Pleasant female, in no acute distress, nondiaphoretic, well-developed well-nourished. SKIN: The skin was without rashes, erythema, edema, or bruising. There is no t enting of the skin. Capillary reflex less than 2 seconds. HEAD: Normocephalic atraumatic. EARS: External auditory canals clear, EYES: Pupils equal round and reactive to light and accommodation. Conjunctivae without injection, sclerae without icterus. Extraocular movements intact. NOSE: Patent, turbinates without inflammation or discharge. MOUTH: Mucous membranes moist. Pharynx without erythema or exudate. Uvula midline. Airway patent. Tongue does not deviate. NECK: Supple without nuchal rigidity. No lymphadenopathy. No thyromegaly. Cervical spine is nontender. No JVD. HEART: Regular rate and rhythm LUNGS: Clear to auscultation bilaterally without wheezes, rales or rhonchi. No retractions or accessory muscle use. ABDOMEN: Positive bowel sounds x 4. Normal tympanic percussion. Soft, tender lower abdomen, without masses or organomegaly. Lopez sign negative. No g uarding or rebound tenderness. No CVA tenderness MUSCULOSKELETAL: No muscle atrophy, erythema, or edema noted. NEURO: Patient was alert and oriented to person place and time. Normal sensation to light and sharp touch. No focal neurological deficits. Course Administered Medications Potassium Chloride/Sodium Chloride (Normal Saline W/20 Meq Kcl) 20 meq in 1,000 mls @ 50 mls/hr IV .Q20H ONE; Protocol Stop: 06/15/23 20:02 Last Admin: 06/15/23 01:01 Dose: 50 mls/hr Documented By: FRANCO Discontinued Medications Amlodipine Besylate (Amlodipine Besylate 5 Mg Tab) 2.5 mg PO NOW ONE Stop: 06/15/23 00:02 Last Admin: 06/15/23 01:01 Dose: 2.5 mg Documented By: FRANCO Hydromorphone HCl (Hydromorphone Inj 0.5 Mg/0.5 Ml Syr) 0.25 mg IV NOW STA Stop: 06/14/23 21:48 Last Admin: 06/14/23 22:02 Dose: 0.25 mg Documented By: JOSE Hydromorphone HCl (Hydromorphone Inj 0.5 Mg/0.5 Ml Syr) 0.5 mg IV NOW STA Stop: 06/14/23 23:32 Last Admin: 06/14/23 23:57 Dose: 0.5 mg Documented By: FRANCO Acetaminophen (Ofirmev) 1,000 mg in 100 mls @ 400 mls/hr IV NOW STA Stop: 06/14/23 21:49 Last Infusion: 06/14/23 22:50 Dose: 0 mls/hr Documented By: Admin: 06/14/23 21:49 Dose: 400 mls/hr Documented By: ACC Sodium Chloride (Nss 1000ml) 500 mls @ 999 mls/hr IV .Q31M ONE Stop: 06/14/23 22:05 Last Infusion: 06/14/23 22:43 Dose: 0 mls/hr Documented By: Admin: 06/14/23 22:03 Dose: 999 mls/hr Documented By: ACC Piperacillin Sod/Tazobactam Sod (Zosyn) 4.5 gm in 120 mls @ 240 mls/hr IV NOW ONE Stop: 06/14/23 22:07 Last Infusion: 06/14/23 22:42 Dose: 0 mls/hr Documented By: Admin: 06/14/23 21:49 Dose: 240 mls/hr Documented By: ACC Ioversol (Optiray 320 100ml) 92 ml IV ONCE ONE Stop: 06/14/23 22:54 Last Admin: 06/14/23 22:53 Dose: 92 ml Documented By: BRITTANY Ondansetron HCl (Ondansetron Inj 2 Mg/Ml 2 Ml Vial) 4 mg IV NOW STA Stop: 06/14/23 21:36 Last Admin: 06/14/23 21:49 Dose: 4 mg Documented By: ACC Phenazopyridine HCl (Phenazopyridine Hcl 200 Mg Tab) 200 mg PO NOW STA Stop: 06/14/23 23:31 Last Admin: 06/14/23 23:57 Dose: 200 mg Documented By: FRANCO Potassium Chloride (Potassium Chloride 10 Meq Tabcr) 40 meq PO NOW STA Stop: 06/14/23 21:40 Last Admin: 06/14/23 21:50 Dose: 40 meq Documented By: ACC Medical Decision Making Medical Records Attestation: I reviewed the patient's medical records. Home Medications Current Medication List: was personally reviewed by me Laboratory Data Attestation: I reviewed the patient's lab results. 06/14/23 20:40 06/14/23 20:40 Lab Results 06/14/23 06/14/23 06/14/23 Range/Units 20:40 20:40 21:55 WBC 9.80 (4.8-10.8) K/ul RBC 3.97 L (4.20-5.40) M/uL Hgb 11.5 L (12.0-16.0) g/dl Hct 33.8 L (37.0-47.0) % MCV 85.1 (80.0-100.0) fL MCH 29.0 (25.0-34.0) pg MCHC 34.0 (32.0-36.0) g/dL RDW Std Deviation 42.7 (36.4-46.3) fL RDW Coeff of Owen 13.6 (11.5-14.5) % Plt Count 228 (130-400) K/uL MPV 10.7 (9.4-12.4) fL Immature Gran % (Auto) 0.4 % Neut % (Auto) 72.1 % Lymph % (Auto) 14.9 % [place] % (Auto) 10.9 % Eos % (Auto) 1.2 % Baso % (Auto) 0.5 % Neut # (Auto) 7.06 H (1.40-6.50) K/uL Lymph # (Auto) 1.46 (1.2-3.4) K/uL [place] # (Auto) 1.07 H (0.11-0.59) K/uL Eos # (Auto) 0.12 (0-0.50) K/uL Baso # (Auto) 0.05 (0-0.2) K/uL Immature Gran # (Auto) 0.04 (0.01-0.20) K/uL Sodium 139 (136-145) mmol/L Potassium 3.3 L (3.5-5.1) mmol/L Chloride 104 (98-107) mmol/L Carbon Dioxide 25 (21-32) mmol/L Anion Gap 10 (3-11) BUN 8 (6-23) mg/dl Creatinine 0.64 (0.6-1.2) mg/dl Est Cr Clr Drug Dosing Not Reportable Est GFR ( Amer) 102.6 ml/min Est GFR (Non-Af Amer) 88.5 ml/min BUN/Creatinine Ratio 12.5 (10-20) Glucose 100 H (70-99(Fasting)) mg/dl Calcium 9.2 (8.6-10.3) mg/dl Magnesium 1.9 (1.7-2.4) mg/dl Total Bilirubin 0.7 (0.2-1.0) mg/dl AST 31 (13-39) U/L ALT 25 (7-52) U/L Alkaline Phosphatase 79 (34-104) U/L Total Protein 6.9 (6.0-8.3) gm/dl Albumin 4.2 (3.4-5.0) gm/dl Globulin 2.7 (2.5-4.0) gm/dl Albumin/Globulin Ratio 1.6 (0.9-2) Lipase 11 (11-82) U/L Urine Color Cancelled Urine Appearance Cancelled Urine pH Cancelled Ur Specific [place] Cancelled Urine Protein Cancelled Urine Glucose (UA) Cancelled Urine Ketones Cancelled Urine Blood Cancelled Urine Nitrite Cancelled Urine Bilirubin Cancelled Urine Urobilinogen Cancelled Ur Leukocyte Esterase Cancelled Urine WBC (Auto) Cancelled Urine RBC (Auto) Cancelled U Hyaline Cast (Auto) Cancelled U Epithel Cells (Auto) Cancelled Urine Bacteria (Auto) Cancelled Ur Renal Epithelial Cell Cancelled Urine Crystals Cancelled Calcium Oxalate Crystal Cancelled Uric Acid Crystals Cancelled Triple Phos Crystals Cancelled Other Crystals Cancelled Amorphous Sediment Cancelled Granular Casts Cancelled Waxy Casts Cancelled RBC Casts Cancelled WBC Casts Cancelled Other Casts Cancelled Urine Mucus Cancelled Urine Other Cancelled Urine Trichomonas Cancelled Urine Yeast Cancelled Urine Sperm Cancelled Ur Oval Fat Bodies Cancelled 06/14/23 Range/Units 21:56 WBC (4.8-10.8) K/ul RBC (4.20-5.40) M/uL Hgb (12.0-16.0) g/dl Hct (37.0-47.0) % MCV (80.0-100.0) fL MCH (25.0-34.0) pg MCHC (32.0-36.0) g/dL RDW Std Deviation (36.4-46.3) fL RDW Coeff of Owen (11.5-14.5) % Plt Count (130-400) K/uL MPV (9.4-12.4) fL Immature Gran % (Auto) % Neut % (Auto) % Lymph % (Auto) % [place] % (Auto) % Eos % (Auto) % Baso % (Auto) % Neut # (Auto) (1.40-6.50) K/uL Lymph # (Auto) (1.2-3.4) K/uL [place] # (Auto) (0.11-0.59) K/uL Eos # (Auto) (0-0.50) K/uL Baso # (Auto) (0-0.2) K/uL Immature Gran # (Auto) (0.01-0.20) K/uL Sodium (136-145) mmol/L Potassium (3.5-5.1) mmol/L Chloride (98-107) mmol/L Carbon Dioxide (21-32) mmol/L Anion Gap (3-11) BUN (6-23) mg/dl Creatinine (0.6-1.2) mg/dl Est Cr Clr Drug Dosing Est GFR ( Amer) ml/min Est GFR (Non-Af Amer) ml/min BUN/Creatinine Ratio (10-20) Glucose (70-99(Fasting)) mg/dl Calcium (8.6-10.3) mg/dl Magnesium (1.7-2.4) mg/dl Total Bilirubin (0.2-1.0) mg/dl AST (13-39) U/L ALT (7-52) U/L Alkaline Phosphatase (34-104) U/L Total Protein (6.0-8.3) gm/dl Albumin (3.4-5.0) gm/dl Globulin (2.5-4.0) gm/dl Albumin/Globulin Ratio (0.9-2) Lipase (11-82) U/L Urine Color Dark Yellow Urine Appearance Clear Urine pH 7.0 Ur Specific [place] 1.007 Urine Protein Trace H Urine Glucose (UA) Negative Urine Ketones Negative Urine Blood 3+ H Urine Nitrite Positive A Urine Bilirubin Negative Urine Urobilinogen Negative Ur Leukocyte Esterase 2+ H Urine WBC (Auto) 10-30 H Urine RBC (Auto) >30 H U Hyaline Cast (Auto) 1-5 U Epithel Cells (Auto) 10-20 H Urine Bacteria (Auto) 1+ H Ur Renal Epithelial Cell Urine Crystals Calcium Oxalate Crystal Uric Acid Crystals Triple Phos Crystals Other Crystals Amorphous Sediment Granular Casts Waxy Casts RBC Casts WBC Casts Other Casts Urine Mucus Urine Other Urine Trichomonas Urine Yeast Not Reportable Urine Sperm Ur Oval Fat Bodies Imaging Data Attestation: I personally reviewed and interpreted this imaging study as follows: Radiologist's Impression: Abdomen/Pelvis CT 06/14/23 21:35 Exam(s): CT ABDOMEN + PELVIS With Contrast IV Amt: 92ml OPTIRAY 320 EXAM: CT Abdomen and Pelvis With Intravenous Contrast CLINICAL HISTORY: Reason for exam: abd pain, bladder lift OR 3 days ago. TECHNIQUE: Axial computed tomography images of the abdomen and pelvis with intravenous contrast. CTDI is 19.11 mGy and DLP is 913.47 mGy-cm. Automated exposure control was utilized for the study. A dose lowering technique was utilized adhering to the principles of ALARA. CONTRAST: Patient received 92ml OPTIRAY 320 of IV contrast COMPARISON: CT abdomen and pelvis 08/06/20 FINDINGS: Lung bases are clear. There are a few benign liver cysts. Liver is otherwise unremarkable. Gallbladder, spleen, pancreas, and adrenal glands appear within normal limits. Kidneys are similar in size, contour, and enhancement. There is no hydronephrosis. There is atherosclerosis of the abdominal aorta without aneurysm. There is no adenopathy. There is no free air or significant free fluid. There is a fat-containing supraumbilical ventral hernia, stable from prior exam. Appendix is normal. There is no bowel obstruction or inflammatory change. There are sigmoid diverticula without diverticulitis. Uterus is surgically absent. There is a small focus of gas within the bladder lumen suggesting recent instrumentation. There is thickening of the posterior bladder wall which may be on the basis of postoperative change. Mild stranding surrounds the bladder. There are foci of subcutaneous gas in the perineum. There are no acute osseous findings. There is facet degeneration within the lumbar spine producing grade 1 anterolisthesis of L4. IMPRESSION: 1. Thickened appearance of the posterior bladder wall, possibly on the basis of postoperative change. A small volume of hemorrhagic fluid within the bladder lumen is not excluded. 2. Stranding around the urinary bladder may be on a postoperative basis or may reflect cystitis. Correlate with urinalysis. Small focus of gas and urinary bladder suggesting recent instrumentation. Electronically signed by: Lorna Adrian M.D. 06/14/23 23:20 PM MDM Narrative Prior records/ancillary studies reviewed. Triage Nursing notes reviewed. Additional history obtained from family. The patient's history was concerning for abdominal pain. Differential diagnosis: Etiologies such as postsurgical complication, appendicitis, diverticulitis, PUD, biliary pathology, UTI, pancreatitis, obstruction, mesenteric ischemia, aortic pathology, infections, inflammatory bowel disease, renal colic, as well as others were entertained. Physical examination findings: As above. ER treatment provided: An order was placed for continuous cardiac monitoring. The monitor shows a rate of 60-100 with a sinus rhythm per my Independent interpretation. IV fluids, Zosyn for presumed UTI, Pyridium, Tylenol, pain meds On reassessment the patient felt better. Diagnostics interpreted by me: The labs Independently Interpreted by myself revealed urine concerning for infection sent for culture. Mild anemia, no worrisome leukocytosis Imaging studies: CT of the abdomen pelvis concerning for cystitis per my independent interpretation and radiology report as above was reviewed. Consultation: A consultation was placed with the hospitalist. The case was discussed and diagnostics were reviewed. The patient was evaluated in the ER for further treatment. Exam and history seem consistent with postsurgical pain with cystitis who is feeling nauseous. Patient does not feel comfortable going home. She is quite nauseated and does not think she can take her antibiotics. She was given IV antibiotics here. Medicine is consulted and the case discussed. She will be admitted to the medical service for further evaluation and treatment. Patient and family are agreeable.By the evaluation outlined above emergent etiologies such as appendicitis, diverticulitis, PUD, biliary pathology, pancreatitis, obstruction, mesenteric ischemia, aortic pathology, inflammatory bowel disease, renal colic, as well as others were deemed relatively unlikely. The pt informed about the findings as listed above. All questions were answered and pleased with the treatment. The chart was completed utilizing [employer] Speech voice recognition software. Grammatical errors, random word insertions, pronoun errors, and incomplete sentences are an occassional consequence of this system due to software limitations, ambient noise, and hardware issues. Any formal questions or concerns about the content, text, or information contained within the body of this dictation should be directly addressed to the physician assistant production editor for clarification. Impression & Plan Acute UTI, Abdominal pain, acute, Nausea Discharge Plan Visit Data Chief Complaint: Abdominal Pain Stated Complaint: ABDOMINAL PAIN ED Provider: Juan Carlos Caal ED Midlevel Provider: Joselin Clayton Discharge Problem: Acute UTI, Abdominal pain, acute, Nausea Patient Disposition: Admitted As Inpatient Condition: Fair Forms Stand Alone Forms: My [facility] Prescriptions Prescriptions: No Action ibuprofen [Advil] 200 mg tablet 600 mg PO Q6H PRN (Reason: Pain) cyanocobalamin (vitamin B-12) 500 mcg tablet 500 mcg PO QAM calcium carbonate 500 mg calcium (1,250 mg) tablet 500 mg PO DAILY cholecalciferol (vitamin D3) 50 mcg (2,000 unit) capsule 2,000 unit PO QPM ascorbic acid (vitamin C) 250 mg tablet 250 mg PO QAM Probiotic Acidophilus 1.5 mg (250 million cell) capsule 1,000 mmu cells PO DAILY Rx Instructions: administer with a meal once per day hydromorphone 2 mg tablet 2 mg PO UD ibuprofen 600 mg tablet 600 mg PO UD pantoprazole 40 mg tablet,delayed release (DR/EC) 40 mg PO DAILYBB omega-3 fatty acids 1,000 mg Capsule 1,000 mg PO HS Referrals Referrals: Deisi Romero DO [Primary Care Provider] -
--- NOTE | 2023-06-15 01:47 | History & Physical Report ---
Date of Service June 15, 2023 Assessment & Plan (1) Complicated UTI (urinary tract infection): Plan: Recent urogynecologic procedure No sepsis for now Anemia secondary to hematuria Hypertensive urgency secondary to illness Patient not currently on maintenance medications. 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 SCDs Re: Hematuria causing anemia Full code Text document was generated using [employer] voice recognition software. It may contain grammatical or spelling errors. Kindly contact undersigned for clarification of any documentation item in question. History of Present Illness Chief Complaint: Abdominal pain, hematuria Primary Care Provider: Deisi Romero DO History obtained from patient and records. Medical history significant for hypertension, hyperlipidemia, past history of PVCs, NAFLD, Bateman's esophagus, ovarian cancer status post chemoradiation, non-Hodgkin's lymphoma status post chemoradiation, chronic back pain. Last confinement 2015 for transient global amnesia. Three days ago, patient underwent outpatient colpocleisis, colporrhaphy, mid urethral sling, cystoscopy procedure for complete vaginal vault prolapse, cystocele, rectocele, stress incontinence at [facility] same-day surgery. Tolerable postop perineal discomfort. Hematuria as expected by patient postprocedure. Patient Enciso catheter removed after seen [facility] urogynecologist yesterday. Worsening lower abdominal discomfort and hematuria that at home. Denies urinary retention. Some nausea, no emesis. No headache, no chest pain, no SOB. Patient brought to the ER for evaluation. SBP 180s upon arrival at the ER IV Zosyn administered at the ER for UTI. 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 Allergies Allergy/AdvReac Type Severity Reaction Status Date / Time lisinopril Allergy Intermediate fatigue Verified 07/27/22 11:23 solifenacin Allergy Intermediate visual Verified 07/27/22 11:23 disturbance cefuroxime [From Ceftin] Allergy Mild Nausea Verified 07/27/22 11:23 codeine Allergy Mild GI UPSET Verified 07/27/22 11:23 morphine Allergy Mild GI SYMPTOMS Verified 07/27/22 11:23 phenobarbital Allergy Unknown UNKNOWN Verified 07/27/22 11:23 REACTION Aujnlyx-VCG-MqL Reductase AdvReac Intermediate AFFECTED Verified 07/27/22 11:23 Inhibitor LIVER, [Iklasmp-Srf-Qgu Reductase fatigue, Inhibitor] nausea valsartan AdvReac Intermediate abdominal Verified 07/27/22 11:23 pain omeprazole AdvReac Mild nausea Verified 07/27/22 11:23 prednisone AdvReac Unknown UNKNOWN Verified 07/27/22 11:23 REACTION Home Medications Medication Instructions Recorded Confirmed Type cyanocobalamin (vitamin B-12) 500 500 mcg PO QAM 07/14/19 06/14/23 History mcg tablet ascorbic acid (vitamin C) 250 mg 250 mg PO QAM 07/23/20 06/14/23 History tablet cholecalciferol (vitamin D3) 50 2,000 unit PO QPM 09/16/20 06/14/23 History mcg (2,000 unit) capsule Lactobacillus acidophilus 1.5 mg 1,000 mmu cells PO DAILY 11/27/21 06/14/23 History (250 million cell) capsule (Probiotic Acidophilus) calcium carbonate 500 mg calcium 500 mg PO DAILY 11/27/21 06/14/23 History (1,250 mg) tablet ibuprofen 200 mg tablet (Advil) 600 mg PO Q6H PRN Pain 01/06/22 06/14/23 History hydromorphone 2 mg tablet 2 mg PO UD 06/14/23 06/14/23 History ibuprofen 600 mg tablet 600 mg PO UD 06/14/23 06/14/23 History omega-3 fatty acids 1,000 mg 1,000 mg PO HS 06/14/23 06/14/23 History capsule pantoprazole 40 mg tablet,delayed 40 mg PO DAILYBB 06/14/23 06/14/23 History release Past Med/Surg History Medical History Adnexal mass 2018 Barretts esophagus EGD- 2020- WNL - no Bateman Bradycardia Chronic diarrhea Depression Diverticulosis Fatty liver Hepatic cyst Hiatal hernia History of anesthesia reaction in 1970 pt states she received "a shot to help her relax" prior to scheduled T&A sx and pt states she became "very flushed, face got brick red, got so anxious, my heart was racing and I felt like the montanez were closing in"--pt states she refused sx at that time ~Pt has had surgery since then and never had futher issues History of chemotherapy R-EPOCH- 6 cycles 2018 History of gastric ulcer History of Helicobacter pylori infection History of kidney stones 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 BSO Hx of radiation therapy 36 Gy-18 fractions-last tx 02/13/2019 Left lower quadrant abdominal pain intermittent PET scan in August with Oncology Nephrolithiasis 2011 (11/22/13 PCP note) Non-Hodgkin's lymphoma in adult Stage II Diffuse large B-Cell, non-hodgkin's lymphoma-05/25/2018 On statin therapy Osteopenia Dexa scan 2017 Pelvic prolapse Port-A-Cath in place left chest Spinal stenosis Stomach pain reason for EGD Tooth infection Transient global amnesia Urinary Incontinence Urinary incontinence Vitamin deficiency 04/2019-36.5 Surgical History H/O tubal ligation History of esophagogastroduodenoscopy (EGD) History of gynecologic surgery benign tumor removed in vagina History of total abdominal hysterectomy and bilateral salpingo-oophorectomy 11/2018 History of wisdom tooth extraction Hx of colonoscopy S/P breast biopsy open biopsy- fibroadenoma 1996 S/P myomectomy Family History Father Cardiac disorder Kidney stones Myocardial infarction Lung cancer Hypertension Mother Lung cancer Brother Diabetes Family history of malignant neoplasm of skin Stroke Sister Family history of reaction to anesthesia nausea/vomiting Daughter Family history of reaction to anesthesia nausea/vomiting Family hx colonic polyps Other Asthma Denies family history of Breast cancer Colorectal cancer Social History Smoking Status: Never smoker Second Hand Exposure: Yes (parents smoked); Do You Dip or Chew Tobacco: No; Hx Alcohol Use: No Hx Substance Use: No Preferred Language: Japanese Communication Ability: Effective Preschool Assistant Required: No Beliefs That Will Affect Care: None marital status: Current Living Situation: Spouse current occupational status: retired Feels Safe at Home: Yes caffeine: Yes Seatbelt Use: always Assistive Devices: None Review of Systems Review of Systems: As per HPI, all other systems reviewed and negative Physical Exam Physical Exam: GENERAL: Comfortable, pleasant, no respiratory distress SKIN: Pallor, warm HEENT: Pale palpebral conjunctivae, no ptosis, dry buccal mucosa NECK : Supple, no tenderness CHEST : CTA, no tenderness HEART : RRR, no obvious murmurs ABDOMEN: Some distention, hypogastric tenderness EXTREMITIES : No LE swelling/tenderness, no other conspicuous deformities noted NEUROLOGIC : Coherent, no facial asymmetry, no other gross focality Results & Data Results & Data Vital Signs (Past 12 Hours) Vital Signs Temp Pulse Pulse Resp BP Pulse Ox O2 Del Method 06/15/23 01:30 66 18 95 06/15/23 01:20 77 19 95 06/15/23 01:10 67 14 97 06/15/23 01:00 66 17 96 06/15/23 01:00 109/53 L 06/15/23 00:50 69 16 91 06/15/23 00:40 72 26 H 97 06/15/23 00:30 73 12 93 06/15/23 00:20 68 15 95 06/15/23 00:10 71 16 92 06/15/23 00:03 126/76 06/15/23 00:03 68 15 94 06/15/23 00:00 72 20 95 06/14/23 23:50 65 12 94 06/14/23 23:40 66 22 95 06/14/23 23:30 68 15 99 06/14/23 23:20 66 20 93 06/14/23 23:10 67 15 96 06/14/23 23:00 77 17 93 06/14/23 22:40 76 18 06/14/23 22:30 62 12 93 06/14/23 22:20 66 19 96 06/14/23 22:10 71 12 94 06/14/23 22:00 68 20 95 06/14/23 21:50 65 17 97 06/14/23 21:43 67 23 97 06/14/23 21:42 70 06/14/23 21:20 64 17 95 06/14/23 20:31 36.4 C L 71 18 181/77 H 96 Room Air Laboratory Results Laboratory Results WBC 9.80 K/ul (4.8-10.8) 06/14/23 20:40 RBC 3.97 M/uL (4.20-5.40) L 06/14/23 20:40 Hgb 11.5 g/dl (12.0-16.0) L 06/14/23 20:40 Hct 33.8 % (37.0-47.0) L 06/14/23 20:40 MCV 85.1 fL (80.0-100.0) 06/14/23 20:40 MCH 29.0 pg (25.0-34.0) 06/14/23 20:40 MCHC 34.0 g/dL (32.0-36.0) 06/14/23 20:40 RDW Std Deviation 42.7 fL (36.4-46.3) 06/14/23 20:40 RDW Coeff of [place] 13.6 % (11.5-14.5) 06/14/23 20:40 Plt Count 228 K/uL (130-400) 06/14/23 20:40 MPV 10.7 fL (9.4-12.4) 06/14/23 20:40 Immature Gran % (Auto) 0.4 % 06/14/23 20:40 Neut % (Auto) 72.1 % 06/14/23 20:40 Lymph % (Auto) 14.9 % 06/14/23 20:40 [place] % (Auto) 10.9 % 06/14/23 20:40 Eos % (Auto) 1.2 % 06/14/23 20:40 Baso % (Auto) 0.5 % 06/14/23 20:40 Neut # (Auto) 7.06 K/uL (1.40-6.50) H 06/14/23 20:40 Lymph # (Auto) 1.46 K/uL (1.2-3.4) 06/14/23 20:40 [place] # (Auto) 1.07 K/uL (0.11-0.59) H 06/14/23 20:40 Eos # (Auto) 0.12 K/uL (0-0.50) 06/14/23 20:40 Baso # (Auto) 0.05 K/uL (0-0.2) 06/14/23 20:40 Immature Gran # (Auto) 0.04 K/uL (0.01-0.20) 06/14/23 20:40 Sodium 139 mmol/L (136-145) 06/14/23 20:40 Potassium 3.3 mmol/L (3.5-5.1) L 06/14/23 20:40 Chloride 104 mmol/L (98-107) 06/14/23 20:40 Carbon Dioxide 25 mmol/L (21-32) 06/14/23 20:40 Anion Gap 10 (3-11) 06/14/23 20:40 BUN 8 mg/dl (6-23) 06/14/23 20:40 Creatinine 0.64 mg/dl (0.6-1.2) 06/14/23 20:40 Est Cr Clr Drug Dosing Not Reportable 06/14/23 20:40 Est GFR ( Amer) 102.6 ml/min 06/14/23 20:40 Est GFR (Non-Af Amer) 88.5 ml/min 06/14/23 20:40 BUN/Creatinine Ratio 12.5 (10-20) 06/14/23 20:40 Glucose 100 mg/dl (70-99(Fasting)) H 06/14/23 20:40 Calcium 9.2 mg/dl (8.6-10.3) 06/14/23 20:40 Magnesium 1.9 mg/dl (1.7-2.4) 06/14/23 20:40 Total Bilirubin 0.7 mg/dl (0.2-1.0) 06/14/23 20:40 AST 31 U/L (13-39) 06/14/23 20:40 ALT 25 U/L (7-52) 06/14/23 20:40 Alkaline Phosphatase 79 U/L (34-104) 06/14/23 20:40 Total Protein 6.9 gm/dl (6.0-8.3) 06/14/23 20:40 Albumin 4.2 gm/dl (3.4-5.0) 06/14/23 20:40 Globulin 2.7 gm/dl (2.5-4.0) 06/14/23 20:40 Albumin/Globulin Ratio 1.6 (0.9-2) 06/14/23 20:40 Lipase 11 U/L (11-82) 06/14/23 20:40 Urine Color Dark Yellow 06/14/23 21:56 Urine Appearance Clear (Clear) 06/14/23 21:56 Urine pH 7.0 (4.5-7.5) 06/14/23 21:56 Ur Specific [place] 1.007 (1.000-1.030) 06/14/23 21:56 Urine Protein Trace (Negative) H 06/14/23 21:56 Urine Glucose (UA) Negative (Negative) 06/14/23 21:56 Urine Ketones Negative (Negative) 06/14/23 21:56 Urine Blood 3+ (Negative) H 06/14/23 21:56 Urine Nitrite Positive (Negative) A 06/14/23 21:56 Urine Bilirubin Negative (Negative) 06/14/23 21:56 Urine Urobilinogen Negative (Negative) 06/14/23 21:56 Ur Leukocyte Esterase 2+ (Negative) H 06/14/23 21:56 Urine WBC (Auto) 10-30 /hpf (0-5) H 06/14/23 21:56 Urine RBC (Auto) >30 /hpf (0-4) H 06/14/23 21:56 U Hyaline Cast (Auto) 1-5 /lpf (0-5) 06/14/23 21:56 U Epithel Cells (Auto) 10-20 /lpf (0-5) H 06/14/23 21:56 Urine Bacteria (Auto) 1+ (Negative) H 06/14/23 21:56 Ur Renal Epithelial Cell Cancelled 06/14/23 21:55 Urine Crystals Cancelled 06/14/23 21:55 Calcium Oxalate Crystal Cancelled 06/14/23 21:55 Uric Acid Crystals Cancelled 06/14/23 21:55 Triple Phos Crystals Cancelled 06/14/23 21:55 Other Crystals Cancelled 06/14/23 21:55 Amorphous Sediment Cancelled 06/14/23 21:55 Granular Casts Cancelled 06/14/23 21:55 Waxy Casts Cancelled 06/14/23 21:55 RBC Casts Cancelled 06/14/23 21:55 WBC Casts Cancelled 06/14/23 21:55 Other Casts Cancelled 06/14/23 21:55 Urine Mucus Cancelled 06/14/23 21:55 Urine Other Cancelled 06/14/23 21:55 Urine Trichomonas Cancelled 06/14/23 21:55 Urine Yeast Not Reportable 06/14/23 21:56 Urine Sperm Cancelled 06/14/23 21:55 Ur Oval Fat Bodies Cancelled 06/14/23 21:55 Impressions Abdomen/Pelvis CT 06/14/23 21:35 Exam(s): CT ABDOMEN + PELVIS With Contrast IV Amt: 92ml OPTIRAY 320 EXAM: CT Abdomen and Pelvis With Intravenous Contrast CLINICAL HISTORY: Reason for exam: abd pain, bladder lift OR 3 days ago. TECHNIQUE: Axial computed tomography images of the abdomen and pelvis with intravenous contrast. CTDI is 19.11 mGy and DLP is 913.47 mGy-cm. Automated exposure control was utilized for the study. A dose lowering technique was utilized adhering to the principles of ALARA. CONTRAST: Patient received 92ml OPTIRAY 320 of IV contrast COMPARISON: CT abdomen and pelvis 08/06/20 FINDINGS: Lung bases are clear. There are a few benign liver cysts. Liver is otherwise unremarkable. Gallbladder, spleen, pancreas, and adrenal glands appear within normal limits. Kidneys are similar in size, contour, and enhancement. There is no hydronephrosis. There is atherosclerosis of the abdominal aorta without aneurysm. There is no adenopathy. There is no free air or significant free fluid. There is a fat-containing supraumbilical ventral hernia, stable from prior exam. Appendix is normal. There is no bowel obstruction or inflammatory change. There are sigmoid diverticula without diverticulitis. Uterus is surgically absent. There is a small focus of gas within the bladder lumen suggesting recent instrumentation. There is thickening of the posterior bladder wall which may be on the basis of postoperative change. Mild stranding surrounds the bladder. There are foci of subcutaneous gas in the perineum. There are no acute osseous findings. There is facet degeneration within the lumbar spine producing grade 1 anterolisthesis of L4. IMPRESSION: 1. Thickened appearance of the posterior bladder wall, possibly on the basis of postoperative change. A small volume of hemorrhagic fluid within the bladder lumen is not excluded. 2. Stranding around the urinary bladder may be on a postoperative basis or may reflect cystitis. Correlate with urinalysis. Small focus of gas and urinary bladder suggesting recent instrumentation. Electronically signed by: Lorna Adrian M.D. 06/14/23 23:20 PM
[2023-06-15] MEDS ORDERED: PROMETHAZINE HCL 6.25 MG in SODIUM CHLORIDE 0.9% 50 ML IV PRN (01:51)
[2023-06-15] MEDS ORDERED: HYDROmorphone INJ 0.5 MG/0.5 ML SYR IV PRN (01:51)
[2023-06-15] MEDS ORDERED: oxyCODONE HCL IR 5 MG TAB (IMMEDIATE RELEASE) PO PRN (01:51)
--- NOTE | 2023-06-15 03:33 | Urology Consultation ---
Date of Consultation June 15, 2023 Assessment & Plan (1) Urinary retention: The patient has been admitted on the hospitalist service. It appears that the patient has urinary tract infection and she has received antibiotics in the form of Zosyn in the emergency department. The admitting service has transition this to aztreonam. Appropriate culturesHave been sent and these can be followed with antibiotics be tailored based on these results It appears as though the patient has urinary retention by bladder scan. Due to the patient's recent urogynecologic procedure I did contact the on-call [facility] provider and spoke with Dr. Gonzalez of [facility] LITIGATION MANAGER. He notes with the potential of urinary tract infection and urinary retention there is no contraindication to placing a Enciso and this may be in the patient's best interest. I have therefore instructed the emergency room nurses to place a Fol ey catheter. The nurse in the emergency department did place a Enciso catheter and immediately obtained approximately 6 to 700 cc of clear nonbloody urine. Dr. Gonzalez has recommended that the patient's urogynecologist who performed her procedure (Dr. Rangel) be contacted during regular hours for further recommendations. History of Present Illness Reason for Consultation: Abdominal pain Attending Physician: Ty Morrison MD History of Present Illness This is a 73-year female who underwent a urogynecologic procedure at [facility] on 06/12/2023. Patient reports that she had a vaginal prolapse and because of this she was having issues with incontinence. The patient underwent what she describes as a bladder sling. The patient says that she was discharged home with a Enciso catheter which was removed approximate 12 hours ago. The patient says shortly after Enciso catheter was removed she has been having intense abdominal pain/bladder spasm. The patient notes that when she has these bladder spasms she becomes incontinent of urine. She is unsure if she is having any hematuria. She does not report any dysuria with this problem but again reports intense spasm in the suprapubic area of her abdomen without any palliative or provocative factors. She does report some associated nausea without vomiting. She denies any fevers, shakes, or chills. Since arrival to the emergency department patient has had labs and imaging which independent reviewed. CT scan abdomen pelvis showed the patient had thickened appearance of the posterior bladder wall which is felt to represent postoperative change. There is a small volume of what was felt to be hemorrhagic fluid within the bladder lumen. There is some stranding around the urinary bladder which is also still felt to be based on a postoperative basis or potentially representing cystitis. Labs include a CBC her white blood cell count platelet count were normal. Hemoglobin and hematocrit were 11.5 and 33.8. Chemistry profile showed sodium was 139 with a potassium of 3.3. BUN and creatinine were both within the normal range. Urinalysis was positive for nitrites as well as 2+ leukocyte Estrace and 10-30 white blood cells per high- power field. There is 1+ bacteria on this study but no yeast. As noted I discussed with the patient her symptoms. I asked the patient if she has been able to urinate and she says that she does not feel she has been urinating adequately. While in the emergency department I did discuss with the nurses who notes that the patient has a "pure wick" in place and she has been draining significant amounts of blood-tinged urine. I did have the nurses BladderScan the patient and bladder scan revealed that she was retaining about 550 cc of urine. At the time of my interview the patient was resting comfortably in bed and she was in no distress. Allergies Allergy/AdvReac Type Severity Reaction Status Date / Time lisinopril Allergy Intermediate fatigue Verified 07/27/22 11:23 solifenacin Allergy Intermediate visual Verified 07/27/22 11:23 disturbance cefuroxime [From Ceftin] Allergy Mild Nausea Verified 07/27/22 11:23 codeine Allergy Mild GI UPSET Verified 07/27/22 11:23 morphine Allergy Mild GI SYMPTOMS Verified 07/27/22 11:23 phenobarbital Allergy Unknown UNKNOWN Verified 07/27/22 11:23 REACTION Hqjdqiu-OBM-ChQ Reductase AdvReac Intermediate AFFECTED Verified 07/27/22 11:23 Inhibitor LIVER, [Nshgcor-Dub-Isf Reductase fatigue, Inhibitor] nausea valsartan AdvReac Intermediate abdominal Verified 07/27/22 11:23 pain omeprazole AdvReac Mild nausea Verified 07/27/22 11:23 prednisone AdvReac Unknown UNKNOWN Verified 07/27/22 11:23 REACTION Home Medications Medication Instructions Recorded Confirmed Type cyanocobalamin (vitamin B-12) 500 500 mcg PO QAM 07/14/19 06/14/23 History mcg tablet ascorbic acid (vitamin C) 250 mg 250 mg PO QAM 07/23/20 06/14/23 History tablet cholecalciferol (vitamin D3) 50 2,000 unit PO QPM 09/16/20 06/14/23 History mcg (2,000 unit) capsule Lactobacillus acidophilus 1.5 mg 1,000 mmu cells PO DAILY 11/27/21 06/14/23 History (250 million cell) capsule (Probiotic Acidophilus) calcium carbonate 500 mg calcium 500 mg PO DAILY 11/27/21 06/14/23 History (1,250 mg) tablet ibuprofen 200 mg tablet (Advil) 600 mg PO Q6H PRN Pain 01/06/22 06/14/23 History hydromorphone 2 mg tablet 2 mg PO UD 06/14/23 06/14/23 History ibuprofen 600 mg tablet 600 mg PO UD 06/14/23 06/14/23 History omega-3 fatty acids 1,000 mg 1,000 mg PO HS 06/14/23 06/14/23 History capsule pantoprazole 40 mg tablet,delayed 40 mg PO DAILYBB 06/14/23 06/14/23 History release Patient History Medical History Adnexal mass 2018 Barretts esophagus EGD- 2019- WNL - no Bateman Bradycardia Chronic diarrhea Depression Diverticulosis Fatty liver Hepatic cyst Hiatal hernia History of anesthesia reaction in 1970 pt states she received "a shot to help her relax" prior to scheduled T&A sx and pt states she became "very flushed, face got brick red, got so anxious, my heart was racing and I felt like the montanez were closing in"--pt states she refused sx at that time ~Pt has had surgery since then and never had futher issues History of chemotherapy R-EPOCH- 6 cycles 2018 History of gastric ulcer History of Helicobacter pylori infection History of kidney stones 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 BSO Hx of radiation therapy 36 Gy-18 fractions-last tx 02/13/2019 Left lower quadrant abdominal pain intermittent PET scan in August with Oncology Nephrolithiasis 2011 (11/22/13 PCP note) Non-Hodgkin's lymphoma in adult Stage II Diffuse large B-Cell, non-hodgkin's lymphoma-05/25/2018 On statin therapy Osteopenia Dexa scan 2018 Pelvic prolapse Port-A-Cath in place left chest Spinal stenosis Stomach pain reason for EGD Tooth infection Transient global amnesia Urinary Incontinence Urinary incontinence Vitamin deficiency 04/2019-36.5 Surgical History H/O tubal ligation History of esophagogastroduodenoscopy (EGD) History of gynecologic surgery benign tumor removed in vagina History of total abdominal hysterectomy and bilateral salpingo-oophorectomy 11/2018 History of wisdom tooth extraction Hx of colonoscopy S/P breast biopsy open biopsy- fibroadenoma 1996 S/P myomectomy Family History Father Cardiac disorder Kidney stones Myocardial infarction Lung cancer Hypertension Mother Lung cancer Brother Diabetes Family history of malignant neoplasm of skin Stroke Sister Family history of reaction to anesthesia nausea/vomiting Daughter Family history of reaction to anesthesia nausea/vomiting Family hx colonic polyps Other Asthma Denies family history of Breast cancer Colorectal cancer Social History Smoking Status: Never smoker Second Hand Exposure: Yes (parents smoked); Do You Dip or Chew Tobacco: No; Hx Alcohol Use: No Hx Substance Use: No Preferred Language: Faroese Communication Ability: Effective Macadam Raker Required: No Beliefs That Will Affect Care: None marital status: Current Living Situation: Spouse current occupational status: retired Feels Safe at Home: Yes caffeine: Yes Seatbelt Use: always Assistive Devices: Glasses Review of Systems Constitutional: as per Subjective / HPI; no fever and no chills Ear, Nose, Mouth, Throat: no hearing loss Respiratory: no cough Cardiovascular: no chest pain Gastrointestinal: as per Subjective / HPI Genitourinary: as per Subjective / HPI Musculoskeletal: no back pain Integumentary: no rash Neurologic: no localized weakness Physical Exam Constitutional: WD/WN, vitals as above Eyes: no conjunctival abnormality ENMT: Ears: no external ear abnormality Neck: trachea midline Respiratory: normal respiratory effort; no respiratory distress and no labored breathing Cardiovascular: Rate/Rhythm: regular rate and regular rhythm Gastrointestinal (Abdomen): Abdomen is soft and nonrigid. It is nondistended. Patient did have discomfort with palpation of the suprapubic region Musculoskeletal: No calf tenderness Skin: no rashes Neurologic: moves all extremities Psychiatric: A+Ox3, euthymic affect Genitourinary: No CVA tenderness bilaterally. Results & Data Vital Signs (Past 12 Hours) Vital Signs Temp Pulse Pulse Resp BP Pulse Ox O2 Del Method 06/15/23 02:03 60 06/15/23 01:30 66 18 95 06/15/23 01:20 77 19 95 06/15/23 01:10 67 14 97 06/15/23 01:00 66 17 96 06/15/23 01:00 109/53 L 06/15/23 00:50 69 16 91 06/15/23 00:40 72 26 H 97 06/15/23 00:30 73 12 93 06/15/23 00:20 68 15 95 06/15/23 00:10 71 16 92 06/15/23 00:03 126/76 06/15/23 00:03 68 15 94 06/15/23 00:00 72 20 95 06/14/23 23:50 65 12 94 06/14/23 23:40 66 22 95 06/14/23 23:30 68 15 99 06/14/23 23:20 66 20 93 06/14/23 23:10 67 15 96 06/14/23 23:00 77 17 93 06/14/23 22:40 76 18 06/14/23 22:30 62 12 93 06/14/23 22:20 66 19 96 06/14/23 22:10 71 12 94 06/14/23 22:00 68 20 95 06/14/23 21:50 65 17 97 06/14/23 21:43 67 23 97 06/14/23 21:42 70 06/14/23 21:20 64 17 95 06/14/23 20:31 36.4 C L 71 18 181/77 H 96 Room Air PG Care Time/CCT Total # of Minutes Spent Total Time Spent with Patient: Total time spent is greater than 50% in coordination of care (as documented) at patient's floor/unit and/or counseling patient: Coding Level of Care Code 90931 INT INP/OBS CARE 2/55MIN Diagnoses Urinary retention R33.9
[2023-06-15 04:31] LABS: Basophils # (auto) 0.03 K/uL (0-0.2); Basophils % (auto) 0.4 %; Eosinophils # (auto) 0.09 K/uL (0-0.50); Eosinophils % (auto) 1.2 %; Hematocrit (blood only) 31.8 % (37.0-47.0); Hemoglobin 10.5 g/dl (12.0-16.0); Immature Granulocytes # (auto) 0.02 K/uL (0.01-0.20); Immature Granulocytes % (auto) 0.3 %; Lymphocytes # (auto) 1.21 K/uL (1.2-3.4); Lymphocytes % (auto) 16.5 %; Mean Corpuscular Hemoglobin 28.8 pg (25.0-34.0); Mean Corpuscular Volume 87.1 fL (80.0-100.0); Mean Platelet Volume 10.6 fL (9.4-12.4); Monocytes % (auto) 12.3 %; Neutrophils # (auto) 5.08 K/uL (1.40-6.50); Neutrophils % (auto) 69.3 %; Platelet Count 205 K/uL (130-400); RDW Coefficient of Variation 13.8 % (11.5-14.5); RDW Standard Deviation 44.2 fL (36.4-46.3); Red Blood Count 3.65 M/uL (4.20-5.40); White Blood Count 7.33 K/ul (4.8-10.8)
[2023-06-15 04:57] LABS: BUN Creatinine Ratio 11.4 (10-20); Calcium 8.7 mg/dl (8.6-10.3); Creatinine Clr Calc Pharmacy 54.1 ml/min; Est GFR (African American) 99.6 ml/min; Potassium 4.5 mmol/L (3.5-5.1)
[2023-06-15] MEDS ORDERED: AZTREONAM 2,000 MG in DEXTROSE 5% 100 ML IV SCH (06:00)
[2023-06-15] MEDS: PANTOprazole 40 MG TAB PO SCH (07:27)
[2023-06-15] MEDS: ADVANCED PROBIOTIC 1250 MG CAPSULE PO SCH (08:00)
[2023-06-15] MEDS: CYANOCOBALAMIN (B-12) 500 MCG TABLET PO SCH (08:00)
[2023-06-15] MEDS: PHENAZOPYRIDINE HCL 100 MG TAB PO PRN ×2 (09:25→19:49)
[2023-06-15] MEDS ORDERED: PIPERACILLIN/TAZOBACTAM 4.5 GM in DEXTROSE 5% 100 ML IV ONE (12:30)
--- NOTE | 2023-06-15 15:25 | Communication Note ---
Date of Service: June 15, 2023 Patient is seen and examined at bedside. States bladder spasms much improved since hospitalization. Reports intermittent ureteral pain which she attributes to catheter. Denies any hematuria, chest pain, dyspnea, dizziness, nausea, vomiting. Discussed with patient's family at bedside. On exam patient is moderately built and nourished, no apparent distress, normocephalic atraumatic, EOMI, normal breath sounds, clear to auscultation, S1-S2, no murmur, no pedal edema, abdomen soft, mild epigastric tenderness, alert, awake, oriented, grossly no focal deficits, 1+ pedal edema. Complicated UTI H/O urogynecologic procedure. Urinary retention. Cultures pending. We will start on broad-spectrum antibiotics IV Zosyn. Urology on board. Needs follow-up with urogynecologist upon discharge.
[2023-06-15] MEDS: PIPERACILLIN/TAZOBACTAM 4.5 GM in DEXTROSE 5% 100 ML IV SCH (18:17)
[2023-06-15] MEDS ORDERED: ALUMINUM/MAGNESIUM SUSP 30 ML UDC PO STA (21:49)
[2023-06-16] MEDS: PIPERACILLIN/TAZOBACTAM 4.5 GM in DEXTROSE 5% 100 ML IV SCH ×2 (01:41→09:08)
[2023-06-16] MEDS ORDERED: HEPARIN 100 UNIT/ML 5ML FLUSH FLUSH PRN (05:09)
[2023-06-16] MEDS: PANTOprazole 40 MG TAB PO SCH (06:13)
[2023-06-16 07:14] LABS: Hematocrit (blood only) 31.7 % (37.0-47.0); Hemoglobin 10.5 g/dl (12.0-16.0); Mean Corpuscular Hemoglobin 29.2 pg (25.0-34.0); Mean Corpuscular Hgb Conc 33.1 g/dL (32.0-36.0); Mean Corpuscular Volume 88.3 fL (80.0-100.0); Platelet Count 221 K/uL (130-400); Red Blood Count 3.59 M/uL (4.20-5.40)
[2023-06-16 07:25] LABS: BUN Creatinine Ratio 15.7 (10-20); Calcium 8.8 mg/dl (8.6-10.3); Creatinine Clr Calc Pharmacy 54.4 ml/min; Est GFR (African American) 99.6 ml/min; Magnesium 2.1 mg/dl (1.7-2.4)
[2023-06-16] MEDS ORDERED: amLODIPine BESYLATE 5 MG TAB PO SCH (09:00)
[2023-06-16] MEDS: CYANOCOBALAMIN (B-12) 500 MCG TABLET PO SCH (09:08)
[2023-06-16] MEDS: ADVANCED PROBIOTIC 1250 MG CAPSULE PO SCH (09:08)
--- NOTE | 2023-06-16 13:25 | Discharge Summary ---
Date of Service June 16, 2023 Admission HPI Per Admitting Provider History obtained from patient and records. Medical history significant for hypertension, hyperlipidemia, past history of PVCs, NAFLD, Bateman's esophagus, ovarian cancer status post chemoradiation, non-Hodgkin's lymphoma status post chemoradiation, chronic back pain. Last confinement 2015 for transient global amnesia. Three days ago, patient underwent outpatient colpocleisis, colporrhaphy, mid urethral sling, cystoscopy procedure for complete vaginal vault prolapse, cystocele, rectocele, stress incontinence at [facility] same-day surgery. Tolerable postop perineal discomfort. Hematuria as expected by patient postprocedure. Patient Enciso catheter removed after seen [facility] urogynecologist yesterday. Worsening lower abdominal discomfort and hematuria that at home. Denies urinary retention. Some nausea, no emesis. No headache, no chest pain, no SOB. Patient brought to the ER for evaluation. SBP 180s upon arrival at the ER IV Zosyn administered at the ER for UTI. 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 Admission Exam Per Admitting Provider GENERAL: Comfortable, pleasant, no respiratory distress SKIN: Pallor, warm HEENT: Pale palpebral conjunctivae, no ptosis, dry buccal mucosa NECK : Supple, no tenderness CHEST : CTA, no tenderness HEART : RRR, no obvious murmurs ABDOMEN: Some distention, hypogastric tenderness EXTREMITIES : No LE swelling/tenderness, no other conspicuous deformities noted NEUROLOGIC : Coherent, no facial asymmetry, no other gross focality Principal Diagnosis Acute urinary retention Discharge Exam Constitutional: WD/WN, vitals as above, NAD, sitting up in bed, pleasant, conversing easily Respiratory: normal respiratory effort, lungs clear to auscultation, no wheeze, rales, rhonchi. Normal insp/exp effort, no accessory muscle use Cardiovascular: RRR, no murmur, no edema Vessels: no JVD or carotid bruit Chest: normal inspection of chest Abdomen: normal bowel sounds, soft, nontender, no hepatosplenomegaly. Enciso in place draining clear urine Musculoskeletal: no cyanosis or clubbing, extremities motor strength 5/5 Skin: no rashes, warm and dry normal turgor Neurologic: PERRL, EOMI, accommodation nl, no face palsy, no dysarthria CN's II- XI intact bilaterally and moves all extremities Psychiatric: A+Ox3, euthymic affect Discharge Data Allergies Allergy/AdvReac Type Severity Reaction Status Date / Time lisinopril Allergy Intermediate fatigue Verified 07/27/22 11:23 solifenacin Allergy Intermediate visual Verified 07/27/22 11:23 disturbance cefuroxime [From Ceftin] Allergy Mild Nausea Verified 07/27/22 11:23 codeine Allergy Mild GI UPSET Verified 07/27/22 11:23 morphine Allergy Mild GI SYMPTOMS Verified 07/27/22 11:23 phenobarbital Allergy Unknown UNKNOWN Verified 07/27/22 11:23 REACTION Nnqxplh-SHQ-NmH Reductase AdvReac Intermediate AFFECTED Verified 07/27/22 11:23 Inhibitor LIVER, [Jsfherw-Pgg-Kcr Reductase fatigue, Inhibitor] nausea valsartan AdvReac Intermediate abdominal Verified 07/27/22 11:23 pain omeprazole AdvReac Mild nausea Verified 07/27/22 11:23 prednisone AdvReac Unknown UNKNOWN Verified 07/27/22 11:23 REACTION Consultations 06/14/23 23:35 ED Decision to Admit Stat 06/15/23 02:28 Consult Urology Routine Ordered Studies 06/14/23 21:35 CT Abd and Pelvis [CT abd pelvis IV con only] Stat Hospital Course (1) Urinary retention: Patient is a 73-year-old female who underwent outpatient colpocleisis, colporrhaphy, mid urethral sling, cystoscopy procedure for complete vaginal vault prolapse, cystocele, rectocele, stress incontinence at [facility] 3 days prior to admission. She had Enciso catheter removed a day prior to presentation. She developed lower abdominal discomfort and inability to urinate after removal of Enciso. She presented to the ED; Enciso catheter PLACED with drainage of 600 to 700 cc of urine. She was started on empiric antibiotic for suspected UTI. Final urine culture was negative for growth. Urology was consulted for comanagement. Discussion was done with her urogynecologist(Dr. Juan Carlos Rangel) over [place] text. Patient to follow-up with him next week for trial of void. He recommended patient to be started on Urecholine 10 mg 3 times daily on the day of the appointment. Patient was discharged home with Enciso in place . Patient to also follow-up with her primary care doctor. Total Time Total Time Spent Total Time Spent (In Minutes): 45 Total Time Includes: Examination of the Patient, Discharge Planning, Medication Reconciliation, Communication With Other Providers and Other Discharge Plan Discharge Items Patient Disposition: Home - Self-Care Reason For Visit: HTN URG, COMP UTI Discharge Diagnosis: Urinary retention. Condition on Discharge: Fair Activity: Resume your previous activity Non-emergency contact: Primary Care Provider Call non-emergency contact if: you have any medication questions and your symptoms worsen Follow-up/Referrals: Deisi Romero, [Primary Care Provider] - (Date & Time 06/21/2023 11:40 AM Provider Orly Rangel MD [facility] ) Diet: Regular Addtl Attending Provider Instructions: You were admitted to the hospital with urinary retention. Enciso catheter was placed for decompression of the bladder. I discussed and updated Dr. Rangel about the events. His office will call you to schedule an appointment for sometime next week. He recommended that you were prescribed bethanechol 10 mg 3 times a day to be started on the day of the appointment. The urine culture results did not show any infection. No antibiotics are prescribed. An appointment will be set up with your primary care doctor for next week. Pending Studies at Discharge: No Stand-Alone Forms: My [facility] [employer], Smoking Cessation Medications and DC Order Prescriptions: New bethanechol chloride 10 mg tablet 10 mg PO TID Qty: 20 0RF Rx Instructions: Start date on the day of your urology appointment. Continued ibuprofen [Advil] 200 mg tablet 600 mg PO Q6H PRN (Reason: Pain) cyanocobalamin (vitamin B-12) 500 mcg tablet 500 mcg PO QAM calcium carbonate 500 mg calcium (1,250 mg) tablet 500 mg PO DAILY cholecalciferol (vitamin D3) 50 mcg (2,000 unit) capsule 2,000 unit PO QPM ascorbic acid (vitamin C) 250 mg tablet 250 mg PO QAM Probiotic Acidophilus 1.5 mg (250 million cell) capsule 1,000 mmu cells PO DAILY Rx Instructions: administer with a meal once per day hydromorphone 2 mg tablet 2 mg PO UD ibuprofen 600 mg tablet 600 mg PO UD pantoprazole 40 mg tablet,delayed release (DR/EC) 40 mg PO DAILYBB omega-3 fatty acids 1,000 mg Capsule 1,000 mg PO HS Discharge Orders: Discharge Order (Routine); Ordered 06/16/23 Ordered By: Ruiz Nugent/Other Patient Handouts: Enciso Catheter Female Ch Admission Data Admit Date/Time: 06/15/23 01:48 Attending Provider: Ruiz Arceo Admit Provider: Blanco Dinero Primary Care Provider: Deisi Romero Other Providers: Blanco Dinero ; Alok Freeman ; Davey Almaraz ; Franco Robledo ; Ashley Johnson ; Terrell Joseph ; Elvia Ross ; Virginie Ag ; Juan Carlos Sandoval ; Ludwin Mosley ; Nazia Arredondo ; Zhen Anderson ; Rikki Dillard ; Ty Morrison Other Interventions: Discharge Summary Assessment (RN) Last Done: 06/16/23 12:25
== END 2023-06-16 13:50 | disposition home or self-care (01) | DRG 690 ==
LOC: ED 20:26 → SUATTDRO 06-15 01:48 → EDINP 06-15 01:48 → INTOOBSV 06-15 01:48 → 2N 06-15 02:15